=== PATIENT | male | born 1960 | race Caucasian/White ===

== ENCOUNTER 2023-06-12 09:03 | Outpatient (CLI) | payer MEDICARE, OTHER, SELFPAY ==
--- NOTE | 2023-06-12 11:06 | W.ANESCHARGE ---
Anesthesia Charges Start Date/Time Anesthesia Start Date: 06/12/23 Anesthesia Start Time: 10:23 Stop Date/Time Anesthesia Stop Date: 06/12/23 Anesthesia Stop Time: 11:21
--- NOTE | 2023-06-12 11:25 | W.ANESCHARGE ---
Anesthesia Charges Start Date/Time Anesthesia Start Date: 06/12/23 Anesthesia Start Time: 10:23 Stop Date/Time Anesthesia Stop Date: 06/12/23 Anesthesia Stop Time: 11:21
== END 2023-06-12 09:04 | disposition home or self-care (01) ==
PROVIDERS: PCP Family Medicine; Visit Provider Internal Medicine
DX: Z12.11 Encounter for screening for malignant neoplasm of colon (principal); K63.5 Polyp of colon; K57.30 Diverticulosis of large intestine without perforation or abscess without bleeding; D50.9 Iron deficiency anemia, unspecified; K22.89 Other specified disease of esophagus
CPT/HCPCS: 00813; 43239; 45380; 88305; J2704

== ENCOUNTER 2023-07-18 18:20 | Observation (INO) | payer MEDICARE, OTHER, SELFPAY ==
[2023-07-18] VITALS (13 sets, daily range): BP systolic 106–152; BP diastolic 68–96; PULSE 76–112; RESP 16–20; TEMP 36.7–37; O2SAT 97–99; BMI 29.5; BMI 28.1
--- NOTE | 2023-07-18 18:37 | ED.GENADULT ---
HPI - General Adult General Chief complaint: GI Bleed Stated complaint: GI bleed Time Seen by Provider: 07/18/23 18:24 History of Present Illness HPI narrative: Pt reports hx of diverticuli GI Bleed in 2009, needed transfusions after this. This was 2 months after a colonoscopy. Now, pt reports colonoscopy was done in June. About 1 hour ago, pt began having bright red bloody stool. Pt's reports hgb has been trending low over the last few months as well, states trending low has been under 13. Pt has no pain and no other complaints besides the bleeding. 63-year-old man presenting to the emergency department with concern of rectal bleeding. About an hour ago had a bright red bloody stool. He is not having abdominal pain. It has been gurgling a lot. Does have a history of hemorrhoids. Not feeling lightheaded short of breath or with any chest pain. In 2009 had a GI bleed that ultimately resulted in transfusions and reported ?shock?. Coincidentally she mentions later this was approximately 2 months after his colonoscopy. This was suspected but not apparently proven to be a diverticular bleed. Three weeks ago had gotten quite constipated; painfully so. That had resolved. Over the last couple of days has had more formed/firm stools which would be atypical and actually daily when normally every other day would be his pattern. Two months ago had a colonoscopy and EGD with a concern of mild persistent anemia which upon my review of record shows that biopsy was done of a polyp in the sigmoid and descending colon. Also 2 biopsies were taken of the esophagus. Findings ultimately were otherwise unremarkable. He has given up mark/alcohol given the concern had been the perhaps he was bleeding from upper GI source. He does drink a lot of coffee he admits. Related Data Home Medications Medication Instructions Recorded Confirmed amlodipine 10 mg tablet 10 mg PO DAILY 07/18/23 07/18/23 aspirin 81 mg tablet,delayed 81 mg PO DAILY 07/18/23 07/18/23 release (Adult Aspirin Regimen) atorvastatin 10 mg tablet 10 mg PO DAILY 07/18/23 07/18/23 glipizide 5 mg tablet 5 mg PO BID 07/18/23 07/18/23 lisinopril 10 mg tablet 10 mg PO DAILY 07/18/23 07/18/23 metformin 1,000 mg tablet 1,000 mg PO BID 07/18/23 07/18/23 omeprazole 20 mg capsule,delayed 20 mg PO BID 07/18/23 07/18/23 release Allergies Allergy/AdvReac Type Severity Reaction Status Date / Time No Known Drug Allergies Allergy Verified 07/18/23 18:35 Review of Systems Status of ROS: Reports: 6 or more systems reviewed and unremarkable except as noted in History and below [facility] Medical History GERD (gastroesophageal reflux disease) ?K21.9 - Gastro-esophageal reflux disease without esophagitis (ICD-10) Hyperlipidemia ?E78.5 - Hyperlipidemia, unspecified (ICD-10) Essential hypertension ?I10 - Essential (primary) hypertension (ICD-10) Surgical History (Updated 07/18/23 @ 21:27 by Trinity Jones MD) History of endoscopy ?Z98.890 - Other specified postprocedural states (ICD-10) Hx of colonoscopy ?Z98.890 - Other specified postprocedural states (ICD-10) History of tonsillectomy ?Z90.89 - Acquired absence of other organs (ICD-10) Social History Smoking Status: Never smoker Do you use any of these nicotine containing products: None How often do you have a drink containing alcohol: never AUDIT-C Alcohol total score: 0 Non-prescribed substance use: denies use Exam Narrative: Exam Narrative: Pleasant. NAD. Regular blinking behind blue tinted eyeglasses. Easily conversant. Breathing easily. Mucous membranes appear to be well perfused. Extremities also well-perfused. No lower extremity edema. Lungs are clear. Heart in elevated rate. I would note on triage was tachycardic. I do not appreciate any murmur rub or gallop. Abdomen with very active bowel sounds is soft, protuberant, nontender. No masses appreciated. I did discuss doing anoscopy however shortly after initial exam Mr. Garay needed to have a bowel movement. He produced about a quarter cup full of maroonish clotted blood. Const: Vital Signs, click to edit/add: Vital Signs - 24 hr 07/18/23 18:29 07/18/23 18:48 07/18/23 19:06 Temperature 98.6 F Pulse Rate 104 H Pulse Rate [Pulse Oximeter] 112 H Respiratory Rate 16 Blood Pressure 119/81 152/96 H Blood Pressure [Ri ght Upper Arm] 106/70 Pulse Oximetry 99 98 Oxygen Delivery Me thod Room Air 07/18/23 19:17 07/18/23 19:20 07/18/23 19:32 Temperature Pulse Rate Pulse Rate [Pulse Oximeter] Respiratory Rate Blood Pressure 119/85 117/81 Blood Pressure [Ri ght Upper Arm] Pulse Oximetry 98 Oxygen Delivery Me thod 07/18/23 19:47 07/18/23 20:02 07/18/23 20:17 Temperature Pulse Rate 90 Pulse Rate [Pulse Oximeter] Respiratory Rate 18 Blood Pressure 117/76 130/83 123/77 Blood Pressure [Ri ght Upper Arm] Pulse Oximetry Oxygen Delivery Me thod Documenting provider has reviewed patient's vital signs: yes Course Vital Signs Vital signs: Initial Vital Signs Temperature 98.6 F 07/18/23 18:29 Temperature Source Temporal Artery Scan 07/18/23 18:29 Pulse Rate 112 H 07/18/23 18:29 Respiratory Rate 16 07/18/23 18:29 Blood Pressure 106/70 07/18/23 18:29 Blood Pressure Mean 82 07/18/23 18:29 Blood Pressure Position Sitting 07/18/23 18:29 Pulse Oximetry 99 07/18/23 18:29 Oxygen Delivery Method Room Air 07/18/23 18:29 Vital Signs Temperature 98.6 F 07/18/23 18:29 Pulse Rate 112 H 07/18/23 18:29 Respiratory Rate 16 07/18/23 18:29 Blood Pressure 106/70 07/18/23 18:29 Pulse Oximetry 99 07/18/23 18:29 Oxygen Delivery Method Room Air 07/18/23 18:29 Temperature 98.6 F 07/18/23 20:37 Pulse Rate 95 07/18/23 20:37 Respiratory Rate 18 07/18/23 20:37 Blood Pressure 112/68 07/18/23 20:37 Pulse Oximetry 98 07/18/23 20:36 Oxygen Delivery Method Room Air 07/18/23 20:36 Medications Administered Medications: Discontinued Medications Generic Name Dose Route Start Last Admin Trade Name Freq PRN Reason Stop Dose Admin Sodium Chloride 1,000 mls @ 1,000 mls/hr 07/18/23 19:06 07/18/23 20:00 0.9 % Sodium Chloride 1000 Ml IV 07/18/23 20:05 Infused .Q1H ONE Infusion Tranexamic Acid 1,000 mg/ 110 mls @ 440 mls/hr 07/18/23 19:19 07/18/23 20:05 Sodium Chloride IVPB 07/18/23 19:20 Infused ONCE ONE Infusion Medical Decision Making MDM Narrative Medical decision making narrative: I do not think that anoscopy exam would be particularly beneficial/useful. This does appear to be a lower GI bleed likely diverticular. I suppose could be AVM. Doubtful hemorrhoidal bleed Checking labs but presuming normal white count and with nontender belly CT imaging of limited benefit. Doubtful diverticulitis in this case. Will type and screen and monitor for continued bleeding and serial hemoglobin/hematocrit. IV fluids and second-line. Also wrote for TXA. Subsequently about an hour after the last bowel movement he had another similar sized maroonish bloody bowel movement. Anticipating admission. No longer tachycardic. No other symptoms. Discussed this case with on-call surgeon and our hospitalist who is thankfully accepting admission. Medical Records Medical records reviewed: Yes I reviewed the patient's medical records Lab Data Lab results reviewed: Yes I reviewed the patient's lab results Labs: Lab Results 07/18/23 Range/Units 18:44 WBC 6.47 (4.50-11.00) K/uL RBC 4.28 L (4.30-5.90) m/uL Hgb 11.2 L (13.5-17.5) gm/dL Hct 35.9 L (37.0-53.0) % MCV 84 (80-100) fL MCH 26 (26-34) pg MCHC 31 L (32-36) gm/dL RDW Coeff of Eva 15.0 (11.5-15.5) % Plt Count 342 (140-440) K/uL Neut % (Auto) 52.5 (42.0-72.0) % Lymph % (Auto) 29.2 (20-44) % [place] % (Auto) 9.3 (0.0-11.0) % Eos % (Auto) 7.9 H (0.0-7.0) % Baso % (Auto) 0.8 (0.0-3.0) % Neut # (Auto) 3.40 (1.7-7.0) K/uL Lymph # (Auto) 1.89 (0.90-2.90) K/uL [place] # (Auto) 0.60 (0.00-0.90) K/UL Eos # (Auto) 0.50 (0.00-0.50) K/uL Baso # (Auto) 0.05 (0.00-0.30) K/uL Abs Immat Gran (auto) 0.02 (0.00-0.30) K/uL Imm/Tot Granulo (auto) 0.3 % INR 0.96 (0.91-1.10) APTT 28 (23-33) Seconds Sodium 139 (135-149) mmol/L Potassium 4.0 (3.6-5.1) mmol/L Chloride 107 (96-114) mmol/L Carbon Dioxide 21 (20-32) mmol/L Anion Gap 11 (7-15) mEq/L BUN 18 (7-30) mg/dL Creatinine 0.8 (0.5-1.5) mg/dL Estimated Creat Clear 85.63 Estimated GFR 98 ml/min Glucose 199 H (60-115) mg/dL Calcium 9.4 (8.4-10.6) mg/dL Total Bilirubin 0.3 (0.1-1.5) mg/dL Direct Bilirubin 0.2 (0.0-0.5) mg/dL AST 29 (12-35) U/L ALT 29 (4-50) U/L Alkaline Phosphatase 45 (40-150) U/L Total Protein 7.4 (6.0-8.3) g/dL Albumin 4.6 (3.3-5.0) g/dL Blood Type A Positive Antibody Screen NEGATIVE Critical Care Time Critical Care Time Critical Care Time: Yes Attestation: The patient required my highest level preparedness to intervene emergently and I personally spent this critical care time directly and personally managing the patient. This critical care time included: Obtaining a history; Examining the patient; Pulse oximetry; Ordering and reviewing of studies; Arranging urgent treatment with development of a management plan; Evaluation of patients response to treatment; Frequent reassessment discussions with other providers. This critical care time was performed to assess and manage the high probability of imminent life-threatening deterioration that could result in multiorgan failure. It was exclusive of separate billable procedures and treating other patients and teaching time. Total Critical Care Time in Minutes: 60 Discharge Plan Discharge Clinical Impression: Acute lower GI bleeding Patient Disposition: Admitted As Observation Condition: Stable
--- NOTE | 2023-07-18 19:07 | ED.NURSE ---
bloody clotted stool passed, md aguero visualized.
[2023-07-18] MEDS: 0.9 % SODIUM CHLORIDE 1000 ml 1,000 ML IV (19:17)
[2023-07-18 19:19] LABS: Basophils Absolute Auto 0.05 K/uL (0.00-0.30); Basophils Percent Auto 0.8 % (0.0-3.0); Eosinophils Percent Auto 7.9 % (0.0-7.0); Hematocrit 35.9 % (37.0-53.0); Hemoglobin* 11.2 gm/dL (13.5-17.5); Immature Granulocytes Abs Auto 0.02 K/uL (0.00-0.30); Immature Granulocytes Pct Auto 0.3 %; Lymphocytes Absolute Auto 1.89 K/uL (0.90-2.90); Lymphocytes Percent Auto 29.2 % (20-44); Mean Corpuscular HGB Conc 31 gm/dL (32-36); Mean Corpuscular Hemoglobin 26 pg (26-34); Mean Corpuscular Volume 84 fL (80-100); Monocytes Percent Auto 9.3 % (0.0-11.0); Neutrophils Percent Auto 52.5 % (42.0-72.0); Platelet Count* 342 K/uL (140-440); Red Blood Count 4.28 m/uL (4.30-5.90); White Blood Count* 6.47 K/uL (4.50-11.00)
[2023-07-18 19:23] LABS: Slide Review Reflex No
[2023-07-18 19:25] LABS: Albumin* 4.6 g/dL (3.3-5.0); Chloride* 107 mmol/L (96-114)
[2023-07-18 19:26] LABS: Sodium* 139 mmol/L (135-149)
[2023-07-18 19:28] LABS: Anion Gap 11 mEq/L (7-15); Aspartate Amino Transferase* 29 U/L (12-35); Bilirubin Direct* 0.2 mg/dL (0.0-0.5); Bilirubin Total* 0.3 mg/dL (0.1-1.5); Blood Urea Nitrogen* 18 mg/dL (7-30); Carbon Dioxide* 21 mmol/L (20-32); Creatinine* 0.8 mg/dL (0.5-1.5); Est. Creatinine Clearance* 85.63; Estimated Glomerular Filt Rate 98 ml/min; Glucose* 199 mg/dL (60-115); Total Protein* 7.4 g/dL (6.0-8.3)
[2023-07-18 19:29] LABS: Alanine Aminotransferase* 29 U/L (4-50); Alkaline Phosphatase* 45 U/L (40-150); Calcium* 9.4 mg/dL (8.4-10.6)
[2023-07-18] MEDS: TRANEXAMIC ACID 1,000 MG in 0.9 % SODIUM CHLORIDE 100 ml 100 ML 440 MG IVPB (19:32)
[2023-07-18 19:33] LABS: INR 0.96 (0.91-1.10); Prothrombin Time 13.4 Seconds
[2023-07-18 19:34] LABS: Partial Thromboplastin Time* 28 Seconds (23-33)
--- NOTE | 2023-07-18 20:29 | P.IMHP_ITS ---
Hospitalist- H&P: HPI History of Present Illness Date Seen: 07/18/23 Chief complaint: GI bleed Narrative: Rufino Garay is a 63 year old male who presented to the hospital for hematochezia that began approximately 1 hour [employer]. No associated abdominal pain. No nausea or vomiting. No recent travel, no concerning foods, History of GI bleed in 2009 (presumed diverticular bleed), requiring a blood transfusion. Last colonoscopy/EGD was in early June 2023 (at [facility] with Dr. Melo), reassuring (diverticula noted). On a daily ASA, no other anticoagulants. ER Course and Findings: - Hgb 11.2 (outpatient baseline around 13, per patient) - + hematochezia in the ED - VS reassuring ( states that normal outpatient BP is 110s/60s) - given 1L NS and TXA - normal LFTs and coagulation studies Histories updated below. PCP is at [facility]. Review of Systems Status of ROS: Reports: 10 or more systems reviewed and unremarkable except as noted in History and below Narrative: - no CP, no dyspnea - no abdominal pain - no skin concerns PFSH PFSH Medical History (Updated 07/18/23 @ 22:15 by Trinity Jones MD) Non-insulin dependent type 2 diabetes mellitus ?E11.9 - Type 2 diabetes mellitus without complications (ICD-10) GERD (gastroesophageal reflux disease) ?K21.9 - Gastro-esophageal reflux disease without esophagitis (ICD-10) Hyperlipidemia ?E78.5 - Hyperlipidemia, unspecified (ICD-10) Essential hypertension ?I10 - Essential (primary) hypertension (ICD-10) Surgical History (Updated 07/18/23 @ 21:27 by Trinity Jones MD) History of endoscopy ?Z98.890 - Other specified postprocedural states (ICD-10) Hx of colonoscopy ?Z98.890 - Other specified postprocedural states (ICD-10) History of tonsillectomy ?Z90.89 - Acquired absence of other organs (ICD-10) Social History (Updated 07/18/23 @ 21:33 by Trinity Jones MD) Narrative: Retired, lives with Mahogany (MDM if needed) in [place]. Adult children. Nonsmoker. Quit drinking ETOH in May 2023. Requests Full Code status. What is your current living situation?: I presently have a place to live Problems where you live: no known problems Problems where you live details: NA In the past 12 months, utilities in danger of being shut off: no In past 12 months, lack of transportation kept you from medical appts, meetings, work, or getting things needed for daily living: no In the past 12 mos, have been you worried that your food would run out before you had money to buy more?: never true In the past 12 mos, the food you bought just didn't last and you didn't have money to buy more?: never true Highest level of school completed/degree received: Associate degree: occupational, technical, vocational program Smoking Status: Never smoker Do you use any of these nicotine containing products: None Second hand tobacco smoke exposure: No How often do you have a drink containing alcohol: monthly or less How often do you have six or more drinks on one occasion: Never AUDIT-C Alcohol total score: 1 Non-prescribed substance use: denies use Caffeine: Yes (4 cups per day) How often does anyone, including family, friends and others, physically hurt you : never How often does anyone, including family, friends and others, insult or talk down to you: never How often does anyone, including family, friends and others, threaten you with harm: never How often does anyone, including family, friends and others, scream or curse at you: never service: No Meds Home Medications and Allergies Home Medications Medication Instructions Recorded Confirmed Type amlodipine 10 mg tablet 10 mg PO DAILY 07/18/23 07/18/23 History aspirin 81 mg tablet,delayed 81 mg PO DAILY 07/18/23 07/18/23 History release (Adult Aspirin Regimen) atorvastatin 10 mg tablet 10 mg PO DAILY 07/18/23 07/18/23 History glipizide 5 mg tablet 5 mg PO BID 07/18/23 07/18/23 History lisinopril 10 mg tablet 10 mg PO DAILY 07/18/23 07/18/23 History metformin 1,000 mg tablet 1,000 mg PO BID 07/18/23 07/18/23 History omeprazole 20 mg capsule,delayed 20 mg PO BID 07/18/23 07/18/23 History release Allergies Allergy/AdvReac Type Severity Reaction Status Date / Time No Known Drug Allergies Allergy Verified 07/18/23 18:35 Exam Narrative: Exam Narrative: GEN: Alert and oriented, nontoxic HEENT: No concerning pallor, EOMIs bilaterally, no scleral icterus CV: RRR, No concerning murmurs R: LCTA bilaterally without concerning wheezing, air movement is adequate Ab: Soft, tolerates palpation, hyperactive bowel sounds throughout Ext: wwp, no concerning edema Skin: No concerning skin lesions or rashes on exposed skin, no jaundice Neuro: Nonfocal Psych: Appropriate Const: Vital Signs, click to edit/add: Vital Signs - 24 hr 07/18/23 18:29 07/18/23 18:48 07/18/23 19:06 Temperature 98.6 F Pulse Rate 104 H Pulse Rate [Pulse Oximeter] 112 H Respiratory Rate 16 Blood Pressure 119/81 152/96 H Blood Pressure [Ri ght Upper Arm] 106/70 Pulse Oximetry 99 98 Oxygen Delivery Me thod Room Air 07/18/23 19:17 07/18/23 19:20 07/18/23 19:32 Temperature Pulse Rate Pulse Rate [Pulse Oximeter] Respiratory Rate Blood Pressure 119/85 117/81 Blood Pressure [Ri ght Upper Arm] Pulse Oximetry 98 Oxygen Delivery Me thod 07/18/23 19:47 07/18/23 20:02 07/18/23 20:17 Temperature Pulse Rate 90 Pulse Rate [Pulse Oximeter] Respiratory Rate 18 Blood Pressure 117/76 130/83 123/77 Blood Pressure [Ri ght Upper Arm] Pulse Oximetry Oxygen Delivery Me thod Hospitalist - H&P: Result Labs Labs: Short CBC 07/18/23 Range/Units 18:44 WBC 6.47 (4.50-11.00) K/uL Hgb 11.2 L (13.5-17.5) gm/dL Hct 35.9 L (37.0-53.0) % Plt Count 342 (140-440) K/uL BMP 07/18/23 18:44 Sodium 139 Potassium 4.0 Chloride 107 Carbon Dioxide 21 BUN 18 Creatinine 0.8 Glucose 199 H Calcium 9.4 Liver Function 07/18/23 Range/Units 18:44 Total Bilirubin 0.3 (0.1-1.5) mg/dL Direct Bilirubin 0.2 (0.0-0.5) mg/dL AST 29 (12-35) U/L ALT 29 (4-50) U/L Alkaline Phosphatase 45 (40-150) U/L Albumin 4.6 (3.3-5.0) g/dL Assessment and Plan Assessment and plan (1) Acute lower GI bleeding: Problem comment: - presumably diverticular bleed - received IVFs and TXA in ED 07/18 - follow Hgb, patient amenable to transfusion if indicated - clear liquid diet Status: Acute (2) Essential hypertension: Problem comment: - holding home BP medications given risk of hypotension Status: Acute (3) Hyperlipidemia: Problem comment: - on statin as an outpatient Status: Acute (4) Non-insulin dependent type 2 diabetes mellitus: Problem comment: - on Metformin and Glipizide, last A1C <7 - hold oral glycemics during stay given clear liquid diet Status: Acute Plan - per above - SCDs for ppx - updated at bedside, questions answered
[2023-07-18 22:52] LABS: Hemoglobin* 9.7 gm/dL (13.5-17.5)
[2023-07-19] MEDS: 0.9 % SODIUM CHLORIDE 1000 ml 1,000 ML 125 ML IV ×2 (00:36→08:13)
[2023-07-19 03:00] VITALS: BP 134/78; PULSE 73; RESP 16; O2SAT 97
[2023-07-19 03:09] LABS: Basophils Absolute Auto 0.05 K/uL (0.00-0.30); Basophils Percent Auto 0.7 % (0.0-3.0); Eosinophils Percent Auto 8.3 % (0.0-7.0); Hematocrit 28.9 % (37.0-53.0); Hemoglobin* 9.3 gm/dL (13.5-17.5); Immature Granulocytes Abs Auto 0.01 K/uL (0.00-0.30); Immature Granulocytes Pct Auto 0.1 %; Lymphocytes Absolute Auto 1.73 K/uL (0.90-2.90); Lymphocytes Percent Auto 24.4 % (20-44); Mean Corpuscular HGB Conc 32 gm/dL (32-36); Mean Corpuscular Hemoglobin 27 pg (26-34); Mean Corpuscular Volume 83 fL (80-100); Monocytes Percent Auto 10.6 % (0.0-11.0); Neutrophils Absolute Auto 3.95 K/uL (1.7-7.0); Neutrophils Percent Auto 55.9 % (42.0-72.0); Platelet Count* 263 K/uL (140-440); RDW Coefficient of Variation % 15.1 % (11.5-15.5); White Blood Count* 7.08 K/uL (4.50-11.00)
[2023-07-19 03:11] LABS: Slide Review Reflex No
[2023-07-19 03:22] LABS: Albumin* 3.5 g/dL (3.3-5.0); Chloride* 109 mmol/L (96-114); Sodium* 138 mmol/L (135-149)
[2023-07-19 03:25] LABS: Alanine Aminotransferase* 25 U/L (4-50); Alkaline Phosphatase* 36 U/L (40-150); Anion Gap 6 mEq/L (7-15); Aspartate Amino Transferase* 24 U/L (12-35); Bilirubin Total* 0.3 mg/dL (0.1-1.5); Blood Urea Nitrogen* 17 mg/dL (7-30); Carbon Dioxide* 23 mmol/L (20-32); Creatinine* 0.7 mg/dL (0.5-1.5); Est. Creatinine Clearance* 85.63; Estimated Glomerular Filt Rate 102 ml/min; Glucose* 143 mg/dL (60-115); Total Protein* 6.1 g/dL (6.0-8.3)
[2023-07-19 03:26] LABS: Calcium* 8.9 mg/dL (8.4-10.6)
--- NOTE | 2023-07-19 06:08 | PC.NURSE ---
End of shift [id number]: A&O pleasant and cooperative. VSS w/ sats >90% on RA. Denies lightheaded or dizziness. had x1 loose bloody BM at beginning of shift. up at [facility].
[2023-07-19 08:17] VITALS: BP 118/72; PULSE 76; RESP 18; O2SAT 99
[2023-07-19] MEDS: OMEPRAZOLE 20 MG CAPSULE DR PO (08:25)
--- NOTE | 2023-07-19 11:15 | NUTR.NU ---
RDN with MD consult for diet education related to diabetes. Patient admitted for GI bleed, presumably diverticular bleed. Current weight 218 lbs 7oz, height 6ft 2in; BMI is 28.0 kg/m2. No recent weight history to assess. RDN visited with patient and whom agreed to diet education related to diverticulitis. Patient was provided diet education on a low fiber diet. Discussed foods to include and foods to avoid until MD recommends advancing to high fiber diet. Education also provided on gradually increasing fiber and following a high fiber diet (25-35 grams/day) long-term. Included in these recommendations was the importance of adequate fluid intake, at least 8 cups or more daily. Verbal and written information as well as sample menus provided on both diets from AND [employer] and DIY Flavored Water Recipes from [facility].?Patient verbalized understanding. RDN's contact information was provided and patient was encouraged to contact RDN with questions.
[2023-07-19 11:42] LABS: Hemoglobin* 9.5 gm/dL (13.5-17.5)
--- NOTE | 2023-07-19 15:30 | PC.NURSE ---
shift note: dc'd IV x2 intact. Reviewed dc instructions and copies sent with pt at dc. Belongings reviewed and sent with pt at dc.
--- NOTE | 2023-07-19 15:54 | PM.DS1 ---
DS: Providers Provider Date Seen: 07/19/23 Date of admission: 07/18/23 20:23 Primary care physician: Not a Local Provider Admitting Clinician: Trinity Jones MD Consults: 07/19/23 10:07 Consult to Nutrition [CONS] Routine Comment: Reason for consult:: Miscellaneous Comment: diverticulitis diet Attending Physician on discharge: Micky Franco MD Date of Discharge: 07/19/23 DS: Diagnosis Discharge Diagnosis (1) Acute lower GI bleeding: Status: Acute Problem details: - presumably diverticular bleed - received IVFs and TXA in ED 07/18 - follow Hgb, patient amenable to transfusion if indicated - clear liquid diet - bleeding subsided, remained hemodynamically stable, serial hemoglobins remained stable between 9.3 and 9.7 (2) Anemia associated with acute blood loss: Status: Acute (3) Diverticulosis: Status: Acute Problem details: - educated patient on low-fiber diet and then over an extended period of time gradually increasing the diet to high-fiber diet of 07/25/2039 g daily plus adequate hydration (4) Essential hypertension: Status: Acute Problem details: - holding home BP medications given risk of hypotension, but resumed at discharge (5) Non-insulin dependent type 2 diabetes mellitus: Status: Acute Problem details: - on Metformin and Glipizide, last A1C <7 - hold oral glycemics during stay given clear liquid diet, but resumed at discharge (6) Hyperlipidemia: Status: Acute Problem details: - on statin as an outpatient (7) GERD (gastroesophageal reflux disease): Status: Acute Problem details: - changed dose of omeprazole from 20 mg p.o. b.i.d. to 20 mg once daily in-hospital DS: Summary Hospital Course Hospital Course: For problem based summary of his hospital stay please see above section. Status at Discharge Functional status at discharge: independent ambulation Overall status at discharge: patient is back to baseline Time Spent with Patient Time attestation: Total time spent providing and/or coordinating discharge services: Time spent: Greater than 30 minutes Exam Narrative: Exam Narrative: GEN: Alert and oriented, nontoxic HEENT: No concerning pallor, EOMIs bilaterally, no scleral icterus CV: RRR, No concerning murmurs - denies orthostasis R: LCTA bilaterally without concerning wheezing, air movement is adequate Ab: Soft, tolerates palpation, hyperactive bowel sounds throughout Ext: wwp, no concerning edema Skin: No concerning skin lesions or rashes on exposed skin, no jaundice Neuro: Nonfocal Psych: Appropriate Const: Vital Signs, click to edit/add: Vital Signs - 24 hr 07/18/23 18:29 07/18/23 18:48 07/18/23 19:06 Temperature 98.6 F Pulse Rate 104 H Pulse Rate [Pulse Oximeter] 112 H Respiratory Rate 16 Blood Pressure 119/81 152/96 H Blood Pressure [Ri ght Arm] Blood Pressure [Ri ght Radial Artery] Blood Pressure [Ri ght Upper Arm] 106/70 Pulse Oximetry 99 98 Oxygen Delivery Me thod Room Air 07/18/23 19:17 07/18/23 19:20 07/18/23 19:32 Temperature Pulse Rate Pulse Rate [Pulse Oximeter] Respiratory Rate Blood Pressure 119/85 117/81 Blood Pressure [Ri ght Arm] Blood Pressure [Ri ght Radial Artery] Blood Pressure [Ri ght Upper Arm] Pulse Oximetry 98 Oxygen Delivery Me thod 07/18/23 19:47 07/18/23 20:02 07/18/23 20:17 Temperature Pulse Rate 90 Pulse Rate [Pulse Oximeter] Respiratory Rate 18 Blood Pressure 117/76 130/83 123/77 Blood Pressure [Ri ght Arm] Blood Pressure [Ri ght Radial Artery] Blood Pressure [Ri ght Upper Arm] Pulse Oximetry Oxygen Delivery Me thod 07/18/23 20:36 07/18/23 20:37 07/18/23 21:36 Temperature 98.6 F 98.6 F 98.3 F Pulse Rate Pulse Rate [Pulse Oximeter] 95 95 94 Respiratory Rate 18 18 20 Blood Pressure Blood Pressure [Ri ght Arm] Blood Pressure [Ri ght Radial Artery] 128/85 Blood Pressure [Ri ght Upper Arm] 112/68 112/68 Pulse Oximetry 98 97 Oxygen Delivery Me thod Room Air Room Air 07/18/23 23:30 07/19/23 03:00 07/19/23 08:17 Temperature 98.0 F Pulse Rate Pulse Rate [Pulse Oximeter] 76 73 76 Respiratory Rate 16 16 18 Blood Pressure Blood Pressure [Ri ght Arm] 136/77 134/78 118/72 Blood Pressure [Ri ght Radial Artery] Blood Pressure [Ri ght Upper Arm] Pulse Oximetry 97 97 99 Oxygen Delivery Me thod Room Air Room Air Room Air Documenting provider has reviewed patient's vital signs: yes DS: Data Data Completed and Pending Labs on day of discharge: Labs from last 24 hours 07/19/23 07/19/23 07/18/23 11:20 03:05 22:45 WBC 7.08 RBC 3.50 L Hgb 9.5 L 9.3 L 9.7 L Hct 28.9 L MCV 83 MCH 27 MCHC 32 RDW Coeff of Eva 15.1 Plt Count 263 Neut % (Auto) 55.9 Lymph % (Auto) 24.4 [place] % (Auto) 10.6 Eos % (Auto) 8.3 H Baso % (Auto) 0.7 Neut # (Auto) 3.95 Lymph # (Auto) 1.73 [place] # (Auto) 0.80 Eos # (Auto) 0.60 H Baso # (Auto) 0.05 Abs Immat Gran (auto) 0.01 Imm/Tot Granulo (auto) 0.1 INR APTT Sodium 138 Potassium 4.0 Chloride 109 Carbon Dioxide 23 Anion Gap 6 L BUN 17 Creatinine 0.7 Estimated Creat Clear 85.63 Estimated GFR 102 Glucose 143 H Calcium 8.9 Total Bilirubin 0.3 Direct Bilirubin AST 24 ALT 25 Alkaline Phosphatase 36 L Total Protein 6.1 Albumin 3.5 Blood Type Antibody Screen 07/18/23 18:44 WBC 6.47 RBC 4.28 L Hgb 11.2 L Hct 35.9 L MCV 84 MCH 26 MCHC 31 L RDW Coeff of Eva 15.0 Plt Count 342 Neut % (Auto) 52.5 Lymph % (Auto) 29.2 [place] % (Auto) 9.3 Eos % (Auto) 7.9 H Baso % (Auto) 0.8 Neut # (Auto) 3.40 Lymph # (Auto) 1.89 [place] # (Auto) 0.60 Eos # (Auto) 0.50 Baso # (Auto) 0.05 Abs Immat Gran (auto) 0.02 Imm/Tot Granulo (auto) 0.3 INR 0.96 APTT 28 Sodium 139 Potassium 4.0 Chloride 107 Carbon Dioxide 21 Anion Gap 11 BUN 18 Creatinine 0.8 Estimated Creat Clear 85.63 Estimated GFR 98 Glucose 199 H Calcium 9.4 Total Bilirubin 0.3 Direct Bilirubin 0.2 AST 29 ALT 29 Alkaline Phosphatase 45 Total Protein 7.4 Albumin 4.6 Blood Type A Positive Antibody Screen NEGATIVE Discharge Plan Discharge Disposition: Home, Self-Care Date of Admission: 07/18/23 20:23 Attending Provider on Discharge: Micky Franco Primary Care Provider: Provider,Not a Local Condition: Stable Anticipated Discharge Date/Time: 07/19/23 15:30 Discharge Medications: New omeprazole 20 mg Capsule,Delayed Release(Dr/Ec) 20 mg PO DAILY@0700 30 Days Qty: 30 1RF ferrous sulfate 325 mg (65 mg iron) tablet 325 mg PO DAILY Qty: 30 1RF Rx Instructions: Take with Vitamin C 250 mg once daily. ascorbic acid (vitamin C) [Vitamin C] 250 mg tablet 250 mg PO DAILY Qty: 30 1RF Rx Instructions: Take with ferrous sulfate 324 mg once daily. Continued atorvastatin 10 mg tablet 10 mg PO DAILY amlodipine 10 mg tablet 10 mg PO DAILY metformin 1,000 mg tablet 1,000 mg PO BID lisinopril 10 mg tablet 10 mg PO DAILY glipizide 5 mg tablet 5 mg PO BID Held aspirin [Adult Aspirin Regimen] 81 mg tablet,delayed release (DR/EC) 81 mg PO DAILY Hold Instructions: Resume on 08/02/23. Discontinued omeprazole 20 mg capsule,delayed release(DR/EC) 20 mg PO BID Discharge Orders: Discharge Order (Routine); Ordered 07/19/23 Ordered By: Micky Franco Patient Education: Iron Supplements (By mouth), Omeprazole (By mouth), Ascorbic Acid (By mouth), Diverticulosis (DC), Iron Rich Diet (DC), Iron Deficiency Anemia (GEN) Additional Instructions: 1. Follow-up with primary healthcare management in 1-2 weeks with pre-visit CBC. 2. Return to clinic or hospital sooner if warranted. Activity Level: No Restrictions and Activity as Tolerated Discharge Diet: Diabetic and Other Diet Detail: Follow worker's compensation claims examiner recommendations Follow Up Appointments: Sumit Kline MD [Referring] - Provider,Not a Local [Primary Care Provider] - Arminda Ritchie CNP [Referring] - 07/28/23 10:00 am ([facility] in [place] for follow-up. Pre visit CBC) Forms: SPARQCode Info Instructions
== END 2023-07-19 15:07 | disposition home or self-care (01) ==
LOC: ED 20:16 → MEDSURG 20:23
PROVIDERS: Internal Medicine; Admitting Provider Family Medicine; Emergency Provider Family Medicine; Visit Provider Family Medicine
DX: K92.2 Gastrointestinal hemorrhage, unspecified (principal); D62 Acute posthemorrhagic anemia; K92.1 Melena; R00.0 Tachycardia, unspecified; I10 Essential (primary) hypertension; E11.9 Type 2 diabetes mellitus without complications; E78.5 Hyperlipidemia, unspecified; K21.9 Gastro-esophageal reflux disease without esophagitis; Z79.84 Long term (current) use of oral hypoglycemic drugs; Z79.82 Long term (current) use of aspirin; Z90.89 Acquired absence of other organs; Z87.19 Personal history of other diseases of the digestive system; Z98.890 Other specified postprocedural states
CPT/HCPCS: 36415; 80048; 80053; 80076; 85018; 85025; 85610; 85730; 86850; 86900; 86901; 94761; 96361; 96365; 99284; 99285; 99291; A9270; G0378; J7030